=== PATIENT | female | born 1985 | race Hispanic/Latino ===

== ENCOUNTER 2017-05-06 13:25 | Emergency (ER) | payer BC ==
[2017-05-06] MEDS ORDERED: Ibuprofen 200 MG TAB ONE (13:52)
== END 2017-05-06 14:47 | disposition home or self-care (01) ==
LOC: ERS 13:25
DX: B34.9 Viral infection, unspecified (principal); F17.210 Nicotine dependence, cigarettes, uncomplicated
CPT/HCPCS: 99406

== ENCOUNTER 2017-11-21 01:05 | Emergency (ER) | payer BC | END 2017-11-21 02:25 | disposition home or self-care (01) | LOC: ERS 01:05 | DX: G44.40 Drug-induced headache, not elsewhere classified, not intractable (principal); T43.615A Adverse effect of caffeine, initial encounter; E11.9 Type 2 diabetes mellitus without complications; I10 Essential (primary) hypertension; Z87.891 Personal history of nicotine dependence | CPT/HCPCS: 99283 ==

== ENCOUNTER 2018-05-26 03:54 | Emergency (ER) | payer BC | END 2018-05-26 06:59 | disposition home or self-care (01) | LOC: ERS 03:54 | DX: B34.9 Viral infection, unspecified (principal); I10 Essential (primary) hypertension; F90.9 Attention-deficit hyperactivity disorder, unspecified type; F17.210 Nicotine dependence, cigarettes, uncomplicated | CPT/HCPCS: 99283 ==

== ENCOUNTER 2019-04-15 07:28 | Emergency (ER) | payer BC | END 2019-04-15 09:59 | disposition home or self-care (01) | LOC: ERS 07:28 | DX: K04.7 Periapical abscess without sinus (principal); L30.9 Dermatitis, unspecified; K02.9 Dental caries, unspecified; K03.81 Cracked tooth; F17.210 Nicotine dependence, cigarettes, uncomplicated | CPT/HCPCS: 99283 ==

== ENCOUNTER 2021-03-25 16:58 | Emergency (ER) | payer BC ==
[2021-03-25] MEDS ORDERED: Ibuprofen 200 MG TAB ONE (17:38)
== END 2021-03-25 17:50 | disposition home or self-care (01) ==
LOC: ERS 16:58
DX: S93.402A Sprain of unspecified ligament of left ankle, initial encounter (principal); Z87.891 Personal history of nicotine dependence; X58.XXXA Exposure to other specified factors, initial encounter

== ENCOUNTER 2022-02-16 02:29 | Emergency (ER) | payer BC | END 2022-02-16 03:53 | disposition home or self-care (01) | LOC: ERS 02:29 | DX: T78.1XXA Other adverse food reactions, not elsewhere classified, initial encounter (principal); I10 Essential (primary) hypertension; F17.210 Nicotine dependence, cigarettes, uncomplicated | CPT/HCPCS: 99283 ==

== ENCOUNTER 2022-04-27 20:09 | Emergency (ER) | payer BC | END 2022-04-27 21:59 | disposition home or self-care (01) | LOC: ERS 20:09 | DX: K02.9 Dental caries, unspecified (principal); I10 Essential (primary) hypertension; E11.22 Type 2 diabetes mellitus with diabetic chronic kidney disease; Z87.891 Personal history of nicotine dependence | CPT/HCPCS: 99282 ==

== ENCOUNTER 2024-11-20 00:59 | Emergency (ER) | payer BC, SELFPAY ==
[2024-11-20] MEDS ORDERED: diphenhydrAMINE 50 MG/ML VIAL ONE (01:34)
[2024-11-20] MEDS ORDERED: Morphine 4 MG/ML VIAL ONE (01:34)
[2024-11-20] MEDS ORDERED: Metoclopramide HCl 10 MG (2 mL) VIAL ONE (01:34)
[2024-11-20] MEDS ORDERED: Ketorolac Tromethamine 30 MG (1 mL) VIAL ONE (01:34)
[2024-11-20 01:54] LABS: #Basophils 0.05 10x3/uL (0.0-0.2); #Eosinophils 0.12 10x3/uL (0.0-0.7); #Neutrophils 5.82 10x3/uL (1.40-6.50); %Basophils 0.5 % (0.0-1.0); %Eosinophils 1.3 % (0.0-10.0); %Lymphocytes 29.6 % (21.0-51.0); %Monocytes 4.4 % (0.0-10.0); %Neutrophils 63.8 % (42.0-75.0); Hematocrit 40.2 % (36.0-47.0); Hemoglobin 13.8 g/dL (12.0-16.0); Mean Corpuscular HGB CONC 34.3 g/dL (32.0-36.0); Mean Corpuscular Hemoglobin 30.8 pg (27.0-31.0); Mean Corpuscular Volume 89.7 fL (78.0-98.0); Platelet Count 271 10x3/uL (130-400); RBC Distribution Width 12.4 % (11.5-14.5); Red Blood Cell (RBC) Count 4.48 mill/uL (4.20-5.40); White Blood Cell (WBC) Count 9.14 10x3/uL (4.8-10.8)
[2024-11-20 02:01] LABS: BHCG - Serum Negative (NEGATIVE); Pregs Control Background? CLEAR/WHITE (CLR/WHITE); Pregs Control Bar Appear? YES (CONTROL BAR)
[2024-11-20 02:10] LABS: ALT (SGPT) 23 U/L (Less than 34); AST (SGOT) 29 U/L (11-34); Albumin 3.8 g/dL (3.1-4.5); Alkaline Phosphatase 97 U/L (40-110); Anion Gap 13 mmol/L (10-20); BUN (Urea Nitrogen) 16 mg/dL (7.0-18.7); Bilirubin, Total 0.2 mg/dL (0.3-1.2); Calc. Creatinine Clearance 0 mL/min (70-130); Calcium 8.8 mg/dL (7.8-10.44); Carbon Dioxide 23 mmol/L (22-29); Chloride 107 mmol/L (98-107); Estimated GFR 118; Globulin 3.8 g/dL (2.4-3.5); Glucose 137 mg/dL (70-105); Lipase 23 U/L (8-78); Magnesium 1.9 mg/dL (1.6-2.6); Potassium 4.3 mmol/L (3.5-5.1); Protein, Total 7.6 g/dL (6.0-8.3); Sodium 139 mmol/L (136-145)
[2024-11-20 02:15] LABS: Troponin I Less than 0.010 ng/mL (< 0.028)
== END 2024-11-20 02:57 | disposition home or self-care (01) ==
LOC: ERS 00:59
DX: R51.9 Headache, unspecified (principal); I10 Essential (primary) hypertension; R29.700 NIHSS score 0; F17.290 Nicotine dependence, other tobacco product, uncomplicated
CPT/HCPCS: 80053; 83690; 83735; 84443; 84484; 84703; 85025; 93005; 96374; 96375; J1200; J1885; J2270; J2765